=== PATIENT | female | born 1955 | race Two or more races ===

== ENCOUNTER → 2017-12-23 | Outpatient (CLI) | payer BC | END | disposition home or self-care (01) | LOC: LABWHC1 16:10 | PROVIDERS: ATTEND Otolaryngology | DX: J30.89 Other allergic rhinitis (principal) | CPT/HCPCS: 36415 ==

== ENCOUNTER → 2018-10-21 | Outpatient (CLI) | payer BC ==
--- NOTE | 2018-10-21 12:00 | BD ---
EXAMINATION TYPE: Axial Bone Density DATE OF EXAM: 10/21/2018 COMPARISON: NONE CLINICAL HISTORY: Z 13.82 Height: 65 Weight: 141.3 FRAX RISK QUESTIONS: Alcohol (3 or more units per day): no Family History (Parent hip fracture): no Glucocorticoids (More than 3mos): no (Ex: prednisone, prednisolone, methylprednisolone, dexamethasone, and hydrocortisone). History of Fracture in Adulthood: no Secondary Osteoporosis: 1. Type 1 Diabetes: no 2. Hyperthyroidism: no 3. Menopause before 45: yes 4. Malnutrition: no 5. Chronic liver disease: no Rheumatoid Arthritis: no Current Tobacco Use: no RISK FACTORS HISTORY OF: Family History of Osteoporosis: no Active: yes Diet low in dairy products/other sources of calcium: yes Postmenopausal woman: age 40 Lost more than 2 inches in height since high school: no MEDICATIONS: levothyroxine-30 years otc-allergy meds, inhaler as needed Additional History: EXAM MEASUREMENTS: Bone mineral densitometry was performed using the [employer] System. Bone mineral density as measured about the Lumbar spine is: ----- L1-L4(G/cm2): 0.743 T Score Values are as follows: ----- L2: -3.7 ----- L3: -3.6 ----- L4: -4.0 ----- L1-L4: -3.6 Bone mineral density : baseline Bone mineral density about the R hip (g/cm2): 0.680 Bone mineral density about the L hip (g/cm2): 0.627 T Score values are as follows: -----R Neck: -2.6 -----L Neck: -3.0 -----R Total: -2.6 -----L Total: -2.9 Bone mineral density : baseline IMPRESSION: Osteoporosis (T Score less than -2.5). There is increased fracture risk and therapy is usually indicated based on age. Re-Screen 1-2 years. NOTE: T-SCORE=SD OF THE YOUNG ADULT MEAN.
== END | disposition home or self-care (01) ==
LOC: RADBDWWP 09:05
PROVIDERS: ATTEND Specialist
DX: Z13.820 Encounter for screening for osteoporosis (principal); M81.0 Age-related osteoporosis without current pathological fracture
CPT/HCPCS: 77080

== ENCOUNTER → 2018-11-05 | Outpatient (CLI) | payer BC ==
--- NOTE | 2018-11-05 15:01 | US ---
EXAMINATION TYPE: US transvaginal DATE OF EXAM: 11/05/2018 COMPARISON: NONE CLINICAL HISTORY: N95.9 Unspecified menopausal and perimenopausal. 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 Date of LMP: 20 years ago EXAM MEASUREMENTS: Uterus: 5.2 x 2.5 x 3.3 cm Endometrial Stripe: 0.8 cm Right Ovary: not visualized Left Ovary: not visualized 1. Uterus: Retroverted 2. Endometrium: upper limits of normal; heterogeneous 3. Right Ovary: not visualized 4. Left Ovary: not visualized 5. Bilateral Adnexa: wnl 6. Posterior cul-de-sac: no free fluid Ovaries not seen due to atrophy. Endometrium heterogenous and upper limits of normal IMPRESSION: 1. No suspicious ultrasound abnormalities identified. 2. Prolapse of the urinary bladder may not be visualized on ultrasound examination
== END | disposition home or self-care (01) ==
LOC: RADUSWWP 14:07
PROVIDERS: ATTEND Specialist
DX: N95.9 Unspecified menopausal and perimenopausal disorder (principal); Z78.0 Asymptomatic menopausal state
CPT/HCPCS: 76830

== ENCOUNTER → 2022-08-20 | Outpatient (CLI) | payer MEDICARE ==
--- NOTE | 2022-08-21 07:44 | US ---
EXAMINATION TYPE: US pelvis complete transvag DATE OF EXAM: 08/20/2022 COMPARISON: NONE CLINICAL HISTORY: 66-year-old female N85.0 ENDOMETRIAL HYPERPLASIA, UNSPECIFIED. TECHNIQUE: Transabdominal sonographic images of the pelvis were acquired. Transvaginal sonographic i mages were medically necessary to better assess the anatomy. FINDINGS: EXAM MEASUREMENTS: Uterus: 6.7 x 3.4 x 3.8 cm Endometrial Stripe: 0.3 cm Right Ovary: Obscured by overlying bowel gas, atrophy. Left Ovary: Obscured by overlying bowel gas, atrophy. 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 1. Uterus: Anteverted, mildly heterogeneous 2. Endometrium: wnl 3. Right Ovary: Obscured by overlying bowel gas, atrophy. 4. Left Ovary: Obscured by overlying bowel gas, atrophy. 5. Bilateral Adnexa: wnl 6. Posterior cul-de-sac: wnl IMPRESSION: Small postmenopausal uterus. Endometrial stripe then at 3 mm. Unable to visualize either ovary.
== END | disposition home or self-care (01) ==
LOC: RADUSWWP 15:24
PROVIDERS: ATTEND Family Medicine
DX: T78.40XA Allergy, unspecified, initial encounter (principal); N85.00 Endometrial hyperplasia, unspecified; N95.2 Postmenopausal atrophic vaginitis; R53.82 Chronic fatigue, unspecified; K59.00 Constipation, unspecified; E72.11 Homocystinuria; N95.1 Menopausal and female climacteric states; M81.0 Age-related osteoporosis without current pathological fracture; E07.9 Disorder of thyroid, unspecified
CPT/HCPCS: 76830; 76856

== ENCOUNTER → 2022-09-06 | Outpatient (CLI) | payer MEDICARE ==
--- NOTE | 2022-09-06 10:37 | BD ---
EXAMINATION TYPE: Axial Bone Density DATE OF EXAM: 09/06/2022 CLINICAL HISTORY: 66 years old Female. ICD-10 CODE: OSTEOPOROSIS M81.0 Height: 64 Weight: 122.0 FRAX RISK QUESTIONS: Alcohol (3 or more units per day): no Family History (Parent hip fracture): no Glucocorticoids (More than 3mos): no History of Fracture in Adulthood: no Secondary Osteoporosis: 1. Type 1 Diabetes: no 2. Hyperthyroidism: no 3. Menopause before 45: no 4. Malnutrition: no 5. Chronic liver disease: no Rheumatoid Arthritis: no Current Tobacco Use: no RISK FACTORS HISTORY OF: Hip Fracture (Right/Left): no Spine Fracture: no History of Wrist Fracture: no Surgery to Spine/Hip(right/left)/Wrist (right/left): no Family History of Osteoporosis: sister Active: yes Diet low in dairy products/other sources of calcium: yes Postmenopausal woman: yes Take estrogen and/or progesterone medications: estrogen patch, How long: past 2 years Lost more than 2 inches in height since high school: no Frequent falls: no Poor Health: no Hyperparathyroidism: no Adrenal Insufficiency: no MEDICATIONS: Prednisone or other steroids: no Thyroid Medications: Armor Thyroid How Long: past 30 years Osteoporosis Medications: no Additional Medications: Vit d, Calcium, Multi Vit., Additional History: EXAM MEASUREMENTS: Bone mineral densitometry was performed using the [employer] System. Bone mineral density as measured about the Lumbar spine is: ----- L1-L4(G/cm2): 0.871 T Score Values are as follows: ----- L1: -2.5 ----- L2: -2.6 ----- L3: -2.5 ----- L4: -2.9 ----- L1-L4: -2.6 Z Score Values are as follows: ----- L1: -0.5 ----- L2: -0.6 ----- L3: -0.5 ----- L4: -0.9 ----- L1-L4: -0.6 Bone mineral density has: increased 17.2 % since study of: 10/21/2018 Bone mineral density about the R hip (g/cm2): 0.704 Bone mineral density about the L hip (g/cm2): 0.667 T Score values are as follows: -----R Neck: -2.4 -----L Neck: -2.5 -----R Total: -2.4 -----L Total: -2.7 Z Score values are as follows: -----R Neck: -0.6 -----L Neck: -0.8 -----R Total: -0.9 -----L Total: -1.2 Bone mineral density has: increased 3.0 % since study of: 10/21/2018 FRAX%s: The graph provided illustrates a 12.7% chance for a major osteoporotic fx and a 3.1% chance f or the hips probability for fx in 10 years time. IMPRESSION: Osteoporosis (T Score less than -2.5). There is increased fracture risk and therapy is usually indicated based on age. Re-Screen 1-2 years. NOTE: T-SCORE=SD OF THE YOUNG ADULT MEAN.
== END | disposition home or self-care (01) ==
LOC: RADMAMWWP 09:38
PROVIDERS: ATTEND Family Medicine
DX: Z12.31 Encounter for screening mammogram for malignant neoplasm of breast (principal); M81.0 Age-related osteoporosis without current pathological fracture; N95.2 Postmenopausal atrophic vaginitis; R53.82 Chronic fatigue, unspecified; K59.00 Constipation, unspecified; E72.11 Homocystinuria; M79.7 Fibromyalgia; N95.1 Menopausal and female climacteric states; E07.9 Disorder of thyroid, unspecified
CPT/HCPCS: 77063; 77067; 77080

== ENCOUNTER → 2023-12-02 | Outpatient (CLI) | payer MEDICARE ==
--- NOTE | 2023-12-03 12:11 | MM ---
Reason for Exam: Screening (asymptomatic). Last mammogram was performed 1 year(s) and 3 month(s) ago. Patient History: Menarche at age 13. First Full-Term at age 23. Postmenopausal. Currently using Estrogen. MG stereo VAD BX LT - 2 on the Left side. MG stereo VAD BX LT - 2 on the Left side. 06/09/1991, MG pre op needle loc LT - 2 on the Left side. Sister had breast cancer at or over age 50. Risk Values: Priti 5 year model risk: 4.9%. NCI Lifetime model risk: 15.2%. Prior Study Comparison: 05/24/2020 Bilateral Screening Mammogram, [facility]. 08/14/2021 Bilateral Screening Mammogram, [facility]. 09/06/2022 Bilateral MG 3D screening mammo w/cad, [facility]. Tissue Density: The breasts are heterogeneously dense, which may obscure small masses. Findings: Analyzed By CAD. Left breast biopsy clip. Right breast: There is no suspicious group of microcalcifications or new suspicious mass. Benign-appearing calcifications right breast. Left breast: There is no suspicious group of microcalcifications or new suspicious mass. Benign-appearing calcifications left breast. Overall Assessment: Benign, BI-RAD 2 Management: Screening Mammogram of both breasts in [address] [facility] will attempt to contact patient to return for supplemental views and ultrasound if indicated. Patient should continue monthly self-breast exams. A clinical breast exam by your physician is recommended on an annual basis. This exam should not preclude additional follow-up of suspicious palpable abnormalities. Note on Priti scores and lifetime risk: 1. A Priti score greater than 3% is considered moderate risk. If this is the case, consider specialist referral to assess eligibility for a risk reducing agent. 2. If overall lifetime risk for the development of breast cancer is 20% or higher, the patient may qualify for future screening with alternating mammogram and breast MRI. Electronically signed and approved by: Pedro Linda DO
== END | disposition home or self-care (01) ==
LOC: RADMAMWWP 11:26
PROVIDERS: ATTEND Family Medicine
DX: Z12.31 Encounter for screening mammogram for malignant neoplasm of breast (principal); R92.333 Mammographic heterogeneous density, bilateral breasts; Z78.0 Asymptomatic menopausal state; Z83.0 Family history of human immunodeficiency virus [HIV] disease; T78.40XA Allergy, unspecified, initial encounter; N95.2 Postmenopausal atrophic vaginitis; R53.82 Chronic fatigue, unspecified; K59.00 Constipation, unspecified; R79.82 Elevated C-reactive protein (CRP); E72.11 Homocystinuria; M79.7 Fibromyalgia; N95.1 Menopausal and female climacteric states; M81.0 Age-related osteoporosis without current pathological fracture; E07.9 Disorder of thyroid, unspecified
CPT/HCPCS: 77063; 77067

== ENCOUNTER → 2025-01-03 | Outpatient (CLI) | payer MEDICARE ==
--- NOTE | 2025-01-03 15:45 | BD ---
EXAMINATION TYPE: Axial Bone Density DATE OF EXAM: 01/03/2025 CLINICAL HISTORY: 69 years old Female. ICD-10 CODE: M81.0 AGE-RELATED OSTEOPOROSIS W/O CURRENT PATHO LO , Additional History: Height: 64 Weight: 128 FRAX RISK QUESTIONS: Secondary Osteoporosis: RISK FACTORS HISTORY OF: MEDICATIONS: Thyroid Medications: Which medication: Armor How Lon+ years EXAM MEASUREMENTS: Bone mineral densitometry was performed using the [employer] System. Bone mineral density as measured about the Lumbar spine is: ----- L1-L4(G/cm2): 0.912 T Score Values are as follows: ----- L1: -2.1 ----- L2: -2.5 ----- L3: -2.0 ----- L4: -2.4 ----- L1-L4: -2.2 Z Score Values are as follows: ----- L1: -0.3 ----- L2: -0.6 ----- L3: -0.2 ----- L4: -0.5 ----- L1-L4: -0.3 Bone mineral density has: Increased 4.7% since study of: 09-06-22 Bone mineral density about the R hip (g/cm2): 0.749 Bone mineral density about the L hip (g/cm2): 0.670 T Score values are as follows: -----R Neck: -2.4 -----L Neck: -2.7 -----R Total: -2.1 -----L Total: -2.7 Z Score values are as follows: -----R Neck: -0.6 -----L Neck: -0.9 -----R Total: -0.5 -----L Total: -1.1 Bone mineral density has: Increased 3.6% since study of: 09-06-22 FRAX%s: The graph provided illustrates a 14.9% chance for a major osteoporotic fx and a 4.3% chance f or the hips probability for fx in 10 years time. IMPRESSION: Osteoporosis (T Score less than -2.5). There is increased fracture risk and therapy is usually indicated based on age. Re-Screen 1-2 years. NOTE: T-SCORE=SD OF THE YOUNG ADULT MEAN. [facility], , 01/03/2025 3:42 PM
== END | disposition home or self-care (01) ==
LOC: RADBDWWP 14:50
PROVIDERS: ATTEND Family Medicine
DX: M81.0 Age-related osteoporosis without current pathological fracture (principal); N95.1 Menopausal and female climacteric states; M85.89 Other specified disorders of bone density and structure, multiple sites
CPT/HCPCS: 77080